=== PATIENT | male | born 1945 | race Caucasian/White ===

== ENCOUNTER 2025-06-14 14:25 | Observation (INO) | payer OTHER, MEDICARE ==
--- NOTE | 2025-06-14 14:55 | ED ---
General Adult HPI - General Chief complaint: Chest Pain Stated complaint: Chest Pain Time Seen by Provider: 06/14/25 14:34 Source: patient, family Mode of arrival: ambulatory Limitations: no limitations - History of Present Illness Initial comments: Dictation was produced using [employer] dictation software. please excuse any grammatical, word or spelling errors. Chief Complaint: 79-year-old male with history of defibrillator presents to the ER for chest pain History of Present Illness: Patient 79-year-old male he lives in [facility] however they are in town visiting family. Patient states for the last several months he has been having chest pain. States that today he felt like he was getting worse. States is substernal now involves radiation tingling to the right upper extremity. No associated nausea or diaphoresis. Patient has no hi story known of coronary artery disease. The ROS documented in this emergency department record has been reviewed and confirmed by me. Those systems with pertinent positive or negative responses have been documented in the HPI. All other systems are other negative and/or noncontributory. - Related Data Allergies Allergy/AdvReac Type Severity Reaction Status Date / Time No Known Allergies Allergy Verified 06/14/25 14:31 Review of Systems ROS Statement: Those systems with pertinent positive or pertinent negative responses have been documented in the HPI. ROS Other: All systems not noted in ROS Statement are negative. Past Medical History Past Medical History: Atrial Fibrillation, Coronary Artery Disease (CAD), GERD/ Reflux Past Surgical History: Orthopedic Surgery, Pacemaker Additional Past Surgical History / Comment(s): eye General Exam - General Exam Comments Initial Comments: PHYSICAL EXAM: General Impression: Alert and oriented x3, not in acute distress HEENT: Normocephalic atraumatic, extra-ocular movements intact, pupils equal and reactive to light bilaterally, mucous membranes moist. Cardiovascular: Heart regular rate and rhythm Chest: Able to complete full sentences, no retractions, no tachypnea Abdomen: abdomen soft, non-tender, non-distended, no organomegaly Musculoskeletal: Pulses present and equal in all extremities, no peripheral edema Motor: no focal deficits noted Neurological: CN II-XII grossly intact, no focal motor or sensory deficits noted Skin: Intact with no visualized rashes Psych: Normal affect and mood Limitations: no limitations Course Vital Signs 06/14/25 06/14/25 14:28 16:27 Temperature 98.1 F Pulse Rate 70 70 Respiratory 20 18 Rate Blood Pressure 136/71 140/89 O2 Sat by Pulse 97 98 Oximetry EKG Findings - EKG Comments: EKG Findings:: My EKG interpretation: Ventricular rate 69, ventricular rhythm. QRS 150, QTc 457. No QTC prolongation, no ST or T-wave changes noted. Overall, this EKG is unremarkable Medical Decision Making - Medical Decision Making Was pt. sent in by a medical professional or institution (, PA, AERONAUTICAL ENGINEERING TECHNOLOGIST, urgent care, hospital, or prison...) When possible be specific @ -No Did you speak to anyone other than the patient for history (EMS, parent, family, police, friend...)? What history was obtained from this source @ -No Did you review nursing and triage notes (agree or disagree)? Why? @ -I reviewed and agree with nursing and triage notes Were old charts reviewed (outside hosp., previous admission, EMS record, old EKG, old radiological studies, urgent care reports/EKG's, prison records)? Report findings @ -No old charts were reviewed Differential Diagnosis (chest pain, altered mental status, abdominal pain women, abdominal pain men, vaginal bleeding, musculoskeletal, weakness, fever, dyspnea, syncope, headache, dizziness, GI bleed, back pain, seizure, CVA, palpatations, mental health)? @ -Differential Chest Pain: Stable Angina, Unstable Angina, STEMI, NSTEMI Aortic Dissection, Pneumothorax, Musculoskeletal, Esophageal Spasm GERD, Cholecystitis, Pancreatitis, Zoster, this is not meant to be an all-inclusive list. EKG interpreted by me (3pts min.). @ -See above X-rays interpreted by me (1pt min.). @ -Chest x-ray shows no acute processes CT interpreted by me (1pt min.). @ -None done U/S interpreted by me (1pt. min.). @ -None done What testing was considered but not performed or refused? (CT, X-rays, U/S, labs)? Why? @ -None What meds were considered but not given or refused? Why? @ -None Was smoking cessation discussed for >3mins.? @ -No Were there social determinants of health that impacted care today? How? (Homelessness, low income, unemployed, alcoholism, drug addiction, transportation, low edu. Level, literacy, decrease access to med. care, group home, r ehab)? @ -No Was there de-escalation of care discussed even if they declined (Discuss DNR or withdrawal of care, Hospice)? DNR status @ -No What co-morbidities impacted this encounter? (DM, HTN, Smoking, COPD, CAD, Cancer, CVA, ARF, Chemo, Hep., AIDS, mental health diagnosis, sleep apnea, morbid obesity)? @ -None Was patient admitted / discharged? Hospital course, mention meds given and route, prescriptions, significant lab abnormalities, going to OR and other pertinent info. @ -71-year-old male presents with chest pain concern for acute coronary syndrome. Vital signs upon arrival are within acceptable limits. EKG shows no signs of ischemia infarction. Laboratory evaluation obtained. Troponin negative. Rest of labs unremarkable. Chest x-ray is nonacute. Patient given aspirin. Disposition options were discussed patient agreeable for observation admission with consultation to cardiology. Did you discuss the management of the patient with other professionals (professionals i.e. , PA, AERONAUTICAL ENGINEERING TECHNOLOGIST, lab, RT, psych nurse, social worker aide, junior sales representative, teacher, environmental technical officer, wrapper caser)? Give summary @ -No Was critical care preformed (if so, how long)? @ -No Undiagnosed new problem with uncertain prognosis? @ -No Drug Therapy requiring intensive monitoring for toxicity (Heparin, Nitro, Insulin, Cardizem)? @ -No Were any procedures done? @ -No Diagnosis/symptom? Acute, or Chronic, or Acute on Chronic? Uncomplicated (without systemic symptoms) or Complicated (systemic symptoms)? @ -Acute coronary syndrome Side effects of treatment? @ -No Exacerbation, Progression, or Severe Exacerbation? @ -No Poses a threat to life or bodily function? How? (Chest pain, USA, VT, pneumonia, PE, COPD, DKA, ARF, appy, cholecystitis, CVA, Diverticulitis, Homicidal, Suicidal, threat to staff... and all critical care pts) @ -yes - Lab Data Result diagrams: 06/14/25 15:01 06/14/25 15:01 Lab Results 06/14/25 06/14/25 06/14/25 Range/Units 15:01 15: 15:01 WBC 5.66 (4.50-10.00) 10*3/uL RBC 3.94 L (4.40-5.60) 10*6/uL Hgb 13.3 (13.0-17.0) g/dL Hct 37.4 L (39.6-50.0) % MCV 94.9 (80.0-97.0) fL MCH 33.8 H (27.0-32.0) pg MCHC 35.6 (32.0-37.0) g/dL Plt Count 269 (140-440) 10*3/uL MPV 9.5 (9.5-12.2) fL Immature Gran % (Auto) 0.2 % Neutrophils % 56.6 % Lymphocytes % 27.6 % Monocytes % 13.1 % Eosinophils % 1.6 % Basophils % 0.9 % Immature Gran # 0.01 (0.00-0.04) 10*3/uL Neutrophils # 3.21 (1.80-7.70) 10*3/uL Lymphocytes # 1.56 (0.90-5.00) 10*3/uL Monocytes # 0.74 (0.20-1.00) 10*3/uL Eosinophils # 0.09 (0.04-0.35) 10*3/uL Basophils # 0.05 (0.00-0.10) 10*3/uL PT 10.8 (10.0-12.5) sec INR 1.0 (<1.2) APTT 24.3 (22.0-30.0) sec Sodium 137 (137-145) mmol/L Potassium 4.2 (3.5-5.1) mmol/L Chloride 103 (98-107) mmol/L Carbon Dioxide 21 L (22-30) mmol/L Anion Gap 13 mmol/L BUN 19 (9-20) mg/dL Creatinine 0.70 (0.66-1.25) mg/dL Est GFR (CKD-EPI)AfAm >90 (>60 ml/min/1.73 sqM) Est GFR (CKD-EPI)NonAf >90 (>60 ml/min/1.73 sqM) Glucose 86 (74-99) mg/dL Calcium 9.6 (8.4-10.2) mg/dL Magnesium 1.9 (1.6-2.3) mg/dL Total Bilirubin 0.4 (0.2-1.3) mg/dL AST 29 (17-59) U/L ALT 20 (4-49) U/L Alkaline Phosphatase 43 (38-126) U/L Troponin I (0.000-0.034) ng/mL Total Protein 6.7 (6.3-8.2) g/dL Albumin 4.1 (3.5-5.0) g/dL 06/14/25 Range/Units 15:01 WBC (4.50-10.00) 10*3/uL RBC (4.40-5.60) 10*6/uL Hgb (13.0-17.0) g/dL Hct (39.6-50.0) % MCV (80.0-97.0) fL MCH (27.0-32.0) pg MCHC (32.0-37.0) g/dL Plt Count (140-440) 10*3/uL MPV (9.5-12.2) fL Immature Gran % (Auto) % Neutrophils % % Lymphocytes % % Monocytes % % Eosinophils % % Basophils % % Immature Gran # (0.00-0.04) 10*3/uL Neutrophils # (1.80-7.70) 10*3/uL Lymphocytes # (0.90-5.00) 10*3/uL Monocytes # (0.20-1.00) 10*3/uL Eosinophils # (0.04-0.35) 10*3/uL Basophils # (0.00-0.10) 10*3/uL PT (10.0-12.5) sec INR (<1.2) APTT (22.0-30.0) sec Sodium (137-145) mmol/L Potassium (3.5-5.1) mmol/L Chloride (98-107) mmol/L Carbon Dioxide (22-30) mmol/L Anion Gap mmol/L BUN (9-20) mg/dL Creatinine (0.66-1.25) mg/dL Est GFR (CKD-EPI)AfAm (>60 ml/min/1.73 sqM) Est GFR (CKD-EPI)NonAf (>60 ml/min/1.73 sqM) Glucose (74-99) mg/dL Calcium (8.4-10.2) mg/dL Magnesium (1.6-2.3) mg/dL Total Bilirubin (0.2-1.3) mg/dL AST (17-59) U/L ALT (4-49) U/L Alkaline Phosphatase (38-126) U/L Troponin I <0.012 (0.000-0.034) ng/mL Total Protein (6.3-8.2) g/dL Albumin (3.5-5.0) g/dL Disposition Clinical Impression: Chest pain Clinical Impression: (Ruled Out): Gastroesophageal reflux disease Disposition: ADMITTED IP TO THIS [facility] Condition: Fair Referrals: Nonstaff,Physician [Primary Care Provider] - 1-2 days Decision Time: 16:28
[2025-06-14 15:10] LABS: Basophils # (A) 0.05 10*3/uL (0.00-0.10); Basophils % (A) 0.9 %; Eosinophils # (A) 0.09 10*3/uL (0.04-0.35); Eosinophils % (A) 1.6 %; HCT 37.4 % (39.6-50.0); HGB 13.3 g/dL (13.0-17.0); Lymphocytes # (A) 1.56 10*3/uL (0.90-5.00); Lymphocytes % (A) 27.6 %; MCH 33.8 pg (27.0-32.0); MCHC 35.6 g/dL (32.0-37.0); MCV 94.9 fL (80.0-97.0); Monocytes # (A) 0.74 10*3/uL (0.20-1.00); Monocytes % (A) 13.1 %; Neutrophils # (A) 3.21 10*3/uL (1.80-7.70); Neutrophils % (A) 56.6 %; Platelet Count 269 10*3/uL (140-440); RBC 3.94 10*6/uL (4.40-5.60); RDW 12.9 % (11.5-14.5); WBC 5.66 10*3/uL (4.50-10.00)
--- NOTE | 2025-06-14 15:18 | XR ---
EXAMINATION TYPE: XR chest 2V DATE OF EXAM: 06/14/2025 3:13 PM COMPARISON: None. CLINICAL INDICATION: Male, 79 years old with history of Chest Pain; [facility] TECHNIQUE: XR chest 2V Frontal and lateral views of the chest. FINDINGS: Lungs/Pleura: There is no evidence of pleural effusion, focal consolidation, or pneumothorax. Pulmonary vascularity: Unremarkable. Heart/mediastinum: Cardiac megaly. Left chest wall cardiac pacemaker device with leads overlying the region of the right atrium and right ventricle. Musculoskeletal: No acute osseous pathology. Other findings: None IMPRESSION: No acute cardiopulmonary disease/process. [facility], , 06/14/2025 3:15 PM
[2025-06-14 15:24] LABS: ALT 20 U/L (4-49); AST 29 U/L (17-59); African American GFR (CKD) >90 (>60 ml/min/1.73 sqM); Albumin 4.1 g/dL (3.5-5.0); Alkaline Phosphatase 43 U/L (38-126); Anion Gap 13 mmol/L; Blood Urea Nitrogen 19 mg/dL (9-20); Calcium 9.6 mg/dL (8.4-10.2); Carbon Dioxide 21 mmol/L (22-30); Chloride 103 mmol/L (98-107); Glucose 86 mg/dL (74-99); INR 1.0 (<1.2); Magnesium 1.9 mg/dL (1.6-2.3); Non-African American GFR(CKD) >90 (>60 ml/min/1.73 sqM); Partial Thromboplastin Time 24.3 sec (22.0-30.0); Potassium 4.2 mmol/L (3.5-5.1); Prothrombin Time 10.8 sec (10.0-12.5); Sodium 137 mmol/L (137-145); Total Protein 6.7 g/dL (6.3-8.2)
[2025-06-14] MEDS: ASPIRIN 81 MG PO STA (16:10)
[2025-06-14] MEDS ORDERED: NITROGLYCERIN SL TABS 0.4 MG TAB SUBLINGUAL PRN (16:27)
[2025-06-14] MEDS: APIXABAN 5 MG TAB PO SCH (21:18)
[2025-06-15] MEDS: PANTOPRAZOLE 40 MG TABLET PO SCH (06:42)
[2025-06-15] MEDS: ASPIRIN 325 MG TAB PO SCH (08:18)
[2025-06-15 09:04] LABS: Cholesterol 171.00 mg/dL (0.00-200.00); HDL Cholesterol 67.20 mg/dL (40.00-60.00); LDL Cholesterol,Calculated 87.5 mg/dL (0.0-131.0); Triglycerides 81.50 mg/dL (0.00-149.00); VLDL Calculation 16.30 mg/dL (5.00-40.00)
--- NOTE | 2025-06-15 11:08 | P.CRDCN ---
History of Present Illness Consult date: 06/15/25 Requesting physician: Camilo Engle Reason for Consult (text): chest pain Chief complaint: dizziness, right arm numbness, chest pressure History of present illness: This is a pleasant 79-year-old gentleman patient who follows with a vice president business development in [place], [place]. He has past medical history of permanent pacemaker implantation done in 2020 for heart rate in the 30s while he was visiting in [place], this is a dual-chamber device, history of atrial fibrillation persistent since 2020, anticoagulated on Eliquis, heart murmur for many years. He denies a history of known CAD asked says he had a stress test a couple years ago that was normal, no diabetes, no hypertension, no hyperlipidemia and he is a non-smoker. He says he last saw his vice president business development about a year and a half ago. He initially presented to an urgent care due to needing medication refills and when speaking with them about his recent symptoms they referred him to the emergency department. Presented to the hospital with complaints of recurrent dizziness typically when he is up and about doing things, right arm numbness at times and chest heaviness. The chest heaviness occurs at times with the dizziness but other times on its own. It occurs with walking but not always but typically resolves with rest. He has had no syncope. He denies any palpitations. Diagnostics -EKG: A-fib, ventricular paced -Chest x-ray: No acute cardiopulmonary disease/process -Laboratory studies: White blood cell count 5.66, hemoglobin 13.3, sodium 137, potassium 4.2, BUN 19, creatinine 0.70, magnesium 1.9, troponins negative x 3. -Home cardiac medications: Eliquis 5 mg p.o. twice daily -Prior stress test: A couple of years ago, normal per patient -Echocardiogram: Unknown -Cardiac catheterization: None Review Of Systems: At the time of my exam: CONSTITUTIONAL: Denies fever or chills. HEENT: Denies blurred vision, vision changes. CARDIOVASCULAR: No chest discomfort. Denies orthopnea. Denies PND. Denies palpitations, dizziness, or syncope. RESPIRATORY: Denies shortness of breath, wheezing, or cough. Denies hemoptysis. GASTROINTESTINAL: Denies abdominal pain. Denies nausea or vomiting. Denies bleeding. HEMATOLOGIC: Denies bleeding disorders. GENITOURINARY: Denies hematuria. SKIN: Denies puritis. Denies rash. PHYSICAL EXAMINATION: This is a 79-year-old gentleman in no apparent distress at the time of my exa mination. VITAL SIGNS: Reviewed. HEENT: Head is atraumatic, normocephalic. Pupils are equal, round. Sclerae anicteric. Conjunctivae are clear. Mucous membranes of the mouth are moist. Neck is supple. There is no elevated jugular venous pressure. No carotid bruit is heard. CHEST EXAMINATION: Clear to auscultation bilaterally. No wheezes rales or rhonchi. Respirations even and nonlabored. HEART EXAMINATION: Heart regular, positive S1 and S2. No S3. No S4. Soft systolic murmur. ABDOMEN: Soft, nontender. Bowel sounds are heard. No organomegaly noted. EXTREMITIES: 2+ peripheral pulses with no evidence of peripheral edema and no calf tenderness noted. NEUROLOGIC EXAMINATION: Patient is awake, alert and oriented x3. Assessment: 1. Chest heaviness, acute coronary event has been ruled out 2. Recurrent dizziness 3. Longstanding persistent atrial fibrillation, anticoagulated on Eliquis 4. Status post permanent pacemaker implantation in 2020 Plan: From cardiology's perspective acute coronary event has been ruled out. Patient is unable to recall the name of his vice president business development but once this is obtained we will request records. Patient will be kept n.p.o. after midnight tonight for L exiscan stress test. Will obtain a 2D echo with Doppler study to assess cardiac structure and function. We will have his pacemaker interrogated. Further recommendations to follow. Thank you kindly for this consultation. Nurse practitioner note has been reviewed, I agree with documented findings and plan of care. Patient was seen and examined. Past Medical History Past Medical History: Atrial Fibrillation, Cancer, GERD/Reflux, Prostate Disorder Additional Past Medical History / Comment(s): skin CA, heart murmur, prostate CA in remission History of Any Multi-Drug Resistant Organisms: None Reported Past Surgical History: Orthopedic Surgery, Pacemaker Additional Past Surgical History / Comment(s): cataract surgery, pacemaker due to bradycardia, left knee surgery, skin CA removal Past Anesthesia/Blood Transfusion Reactions: No Reported Reaction Type of Cardiac Device: Permanent Pacemaker Device Placement Date:: 2020 Past Psychological History: No Psychological Hx Reported Smoking Status: Never smoker Past Alcohol Use History: None Reported Past Drug Use History: None Reported Medications and Allergies Home Medications Medication Instructions Recorded Confirmed Type Apixaban [Eliquis] 5 mg PO BID 06/14/25 06/14/25 History Omeprazole 20 mg PO DAILY 06/14/25 06/14/25 History Allergies Allergy/AdvReac Type Severity Reaction Status Date / Time No Known Allergies Allergy Verified 06/14/25 17:25 Physical Exam Vitals: Vital Signs Temp Pulse Pulse Resp BP BP Pulse Ox 06/15/25 07:18 97.8 F 67 18 120/76 96 06/15/25 00:01 97.6 F 70 18 106/65 95 06/14/25 19:56 97.8 F 70 18 155/82 99 06/14/25 18:07 98.2 F 70 18 142/85 98 06/14/25 16:27 70 18 140/89 98 06/14/25 14:28 98.1 F 70 20 136/71 97 Intake and Output 06/14/25 06/15/25 06/15/25 22:59 06:59 14:59 Other: Voiding Method Toilet # Voids 1 2 Weight 67.132 kg Results 06/14/25 15:01 06/14/25 15:01 Cardiac Enzymes 06/14/25 06/14/25 06/14/25 Range/Units 15:01 15:01 17:54 AST 29 (17-59) U/L Troponin I <0.012 <0.012 (0.000-0.034) ng/mL 06/14/25 Range/Units 21:47 AST (17-59) U/L Troponin I <0.012 (0.000-0.034) ng/mL Coagulation 06/14/25 Range/Units 15:01 PT 10.8 (10.0-12.5) sec APTT 24.3 (22.0-30.0) sec CBC 06/14/25 Range/Units 15:01 WBC 5.66 (4.50-10.00) 10*3/uL RBC 3.94 L (4.40-5.60) 10*6/uL Hgb 13.3 (13.0-17.0) g/dL Hct 37.4 L (39.6-50.0) % Plt Count 269 (140-440) 10*3/uL Comprehensive Metabolic Panel 06/14/25 Range/Units 15:01 Sodium 137 (137-145) mmol/L Potassium 4.2 (3.5-5.1) mmol/L Chloride 103 (98-107) mmol/L Carbon Dioxide 21 L (22-30) mmol/L BUN 19 (9-20) mg/dL Creatinine 0.70 (0.66-1.25) mg/dL Glucose 86 (74-99) mg/dL Calcium 9.6 (8.4-10.2) mg/dL AST 29 (17-59) U/L ALT 20 (4-49) U/L Alkaline Phosphatase 43 (38-126) U/L Total Protein 6.7 (6.3-8.2) g/dL Albumin 4.1 (3.5-5.0) g/dL Current Medications Generic Name Dose Route Start Last Admin Trade Name Freq PRN Reason Stop Dose Admin Apixaban 5 mg 06/14/25 21:00 06/15/25 08:18 Apixaban 5 Mg Tab PO 5 mg BID APRIL Administration Protocol Aspirin 325 mg 06/15/25 09:00 06/15/25 08:18 Aspirin 325 Mg Tab PO 325 mg DAILY APRIL Administration Nitroglycerin 0.4 mg 06/14/25 16:27 Nitroglycerin Sl Tabs 0.4 Mg Tab SUBLINGUAL Q5M PRN Chest Pain Pantoprazole Sodium 40 mg 06/15/25 07:30 06/15/25 06:42 Pantoprazole 40 Mg Tablet PO 40 mg [id number] APRIL Administration Intake and Output 06/14/25 06/15/25 06/15/25 22:59 06:59 14:59 Other: Voiding Method Toilet # Voids 1 2 Weight 67.132 kg 06/14/25 15:01 06/14/25 15:01
[2025-06-15 19:24] VITALS: PULSE 70
[2025-06-15] MEDS: SODIUM CHLORIDE 0.9% 1,000 ML IV ONE (20:25)
--- NOTE | 2025-06-16 02:12 | HP ---
HISTORY AND PHYSICAL HISTORY OF PRESENT ILLNESS: A 79-year-old white male came in for Cardiology because of chest pain has been having on and off for months. His right arm is going numb. He has 2 chest pressure. He has been on Eliquis for atrial fibrillation for many years, pacemaker placed. Stress test that was normal 2 years ago. He is dizzy with chest heaviness and tightness palpitations. EKG, atrial fibrillation, ventricular . Chest x-ray negative. Labs show white count is 5.66, potassium 4.2, creatinine 0.7. Troponin is negative. MEDICATIONS: Include Eliquis 5 mg b.i.d. PHYSICAL EXAMINATION: VITAL SIGNS: Stable, afebrile. CARDIOVASCULAR: S1, S2. LUNGS: Scattered rhonchi and wheeze. HEMATOLOGY: Negative Homans. GI: Soft. NEUROLOGIC: Alert and oriented x3. OPHTHALMOLOGIC: Pupils equal, round, reactive. ASSESSMENT AND PLAN: Chest heaviness, acute coronary has been rule. Current dizziness onset , atrial fibrillation, pacemaker. Please see further orders as well as stress test prior to discharge. Follow up as an outpatient. MMODL / IJN: [id number] /
[2025-06-16] MEDS ORDERED: AMINOPHYLLINE 500 MG/20 ML VIAL IV PRN (06:00)
[2025-06-16] MEDS ORDERED: CAFFEINE CITRATE 60 MG/3 ML VIAL IV PRN (06:00)
[2025-06-16] MEDS ORDERED: REGADENOSON 0.4 MG/5 ML SYRINGE IV PRN (06:00)
[2025-06-16 07:21] VITALS: RESP 16
[2025-06-16] MEDS: ASPIRIN 81 MG PO SCH (08:23)
--- NOTE | 2025-06-16 11:46 | NM ---
EXAMINATION TYPE: NM stress lexiscan cardiolite DATE OF EXAM: 06/16/2025 COMPARISON: None CLINICAL INDICATION: Male, 79 years old with history of chest heaviness; TECHNIQUE: After the intravenous administration of 10.4 mCi Tc 99m Sestamibi - Cardiolite resting SP ECT images acquired 75 minutes post injection. The patient received 0.4mg Lexiscan, 25.7 mCi Tc 99m Sestamibi - Stress images obtained [address] injection FINDINGS: Review of stress and rest SPECT images demonstrates a moderate-sized fixed defect mid anterior wall. No discrete reversibility is seen. Gated analysis shows normal wall motion with an estimated left ve ntricular ejection fraction of 57 %. TID is calculated at 1.06. There is a moderate-sized fixed defect mid anterior wall. No discrete reversibility is seen. IMPRESSION: Fixed defect mid anterior wall could reflect attenuation artifact versus an area of old infarct. No discrete reversibility seen. [facility], Workstation: JOSÉ ANTONIOVANESSA, 06/16/2025 11:43 AM
--- NOTE | 2025-06-16 12:11 | CA ---
Lexiscan Nuclear Stress Test Report Name: Jorge Riddle Exam Date: 06/16/2025 09:32 Exam Location: [place] Stress Ht (in): 66 Wt (lb): 148 BSA: 1.76 Ordering Phys: Sofiya Vanegas NPC Referring Phys: PAM Technologist: OSMAN Age: 79 Gender: M : 1945 Procedure CPT: Indications: Reflex order-Stress test ICD-10 Codes: Patient History: CP, LUDIVINA, NUMBNESS, FAMILY HX, COPD. 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 Normal hemodynamic and clinical response to Lexiscan infusion. 2. Stress ECG is not diagnostic because of paced rhythm. Please refer to the nuclear imaging portion of this stress test for complete interpretation of the study. Dr Twan Lance (Electronically Signed) Final Date: 16 June 2025 12:10
--- NOTE | 2025-06-16 12:43 | CA ---
Transthoracic Echo Report Name: Jorge Riddle Age: 79 Gender: M : 1945 Exam Date: 06/16/2025 11:04 Exam Location: [facility] Ht (in): 66 Wt (lb): 148 Ordering Physician: Sofiya Vanegas Attending/Referring Phys: [id number], Guilherme Eyeglass Maker Sofi Wynn RDCS Procedure CPT: Indications: Chest heaviness, Unstable angina Cardiac Hx: Technical Quality: Good Contrast 1: Total Dose (mL): Contrast 2: Total Dose (mL): MEASUREMENTS (Male / Female) Normal Values 2D ECHO LV Diastolic Diameter PLAX 4.0 cm 4.2 - 5.9 / 3.9 - 5.3 cm LV Systolic Diameter PLAX 2.6 cm IVS Diastolic Thickness 1.1 cm 0.6 - 1.0 / 0.6 - 0.9 cm LVPW Diastolic Thickness 1.2 cm 0.6 - 1.0 / 0.6 - 0.9 cm LV Relative Wall Thickness 0.6 RV Internal Dim ED PLAX 3.9 cm LVOT Diameter 2.0 cm LA Systolic Diameter LX 3.8 cm 3.0 - 4.0 / 2.7 - 3.8 cm LV Diastolic Volume MOD BP 64.8 cm??? 67 - 155 / 56 - 104 cm??? LV Systolic Volume MOD BP 25.5 cm??? 22 - 58 / 19 - 49 cm??? LV Ejection Fraction MOD BP 60.6 % >= 55 % LV Cardiac Index MOD BP 1547.2 cm???/min???m??? LV Diastolic Volume MOD 4C 47.5 cm??? LV Systolic Volume MOD 4C 22.0 cm??? LV Ejection Fraction MOD 4C 53.6 % LV Cardiac Index MOD 4C 1004.6 cm???/min???m??? LV Diastolic Length 4C 6.6 cm LV Systolic Length 4C 5.9 cm LV Diastolic Volume MOD 2C 81.5 cm??? LV Systolic Volume MOD 2C 30.0 cm??? LV Ejection Fraction MOD 2C 63.3 % LV Cardiac Index MOD 2C 2034.0 cm???/min???m??? LV Diastolic Length 2C 7.2 cm LV Systolic Length 2C 5.9 cm LA Volume 60.4 cm??? 18 - 58 / 22 - 52 cm??? LA Volume Index 34.0 cm???/m??? 16 - 28 cm???/m??? DOPPLER AI Peak Velocity 312.8 cm/s AI Peak Gradient 39.1 mmHg AI Pressure Half Time 529.9 ms TR Peak Velocity 250.0 cm/s TR Peak Gradient 25.0 mmHg Right Atrial Pressure 5.0 mmHg Pulmonary Artery Systolic Pressu 30.0 mmHg Right Ventricular Systolic Press 30.0 mmHg FINDINGS Left Ventricle Left ventricular ejection fraction is estimated at 55-60%. Mild concentric left ventricular hypertrophy. No obvious regional wall motion abnormalities. Left ventricular cavity size normal. Right Ventricle right ventricular dilatation. Right ventricular systolic pressure within normal limits. Right Atrium Moderate right atrial dilatation. Left Atrium Mildly increased left atrial volume. Mildly increased left atrial area. Mitral Valve Mitral valve thickened. No mitral stenosis. Mild mitral regurgitation. Aortic Valve Trileaflet aortic valve. No aortic stenosis. Mild aortic regurgitation. Tricuspid Valve Structurally normal tricuspid valve. No tricuspid stenosis. Mild tricuspid regurgitation. Pulmonic Valve Structurally normal pulmonic valve. No pulmonic stenosis. Trace pulmonic regurgitation. Pericardium No pericardial effusion. Aorta Normal size aortic root and proximal ascending aorta. CONCLUSIONS LVEF 55% Mild concentric LVH. No obvious regional wall motion abnormality Moderate RV dilatation with moderate RA dilatation. Normal RVSP Mild mitral regurgitation, mild aortic regurgitation, mild tricuspid regurgitation Previewed by: Dr Twan Lance (Electronically Signed) Final Date: 16 June 2025 12:42
--- NOTE | 2025-06-16 12:52 | P.PN ---
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 He has past medical history of permanent pacemaker implantation done in 2020 for heart rate in the 30s while he was visiting in [place], this is a dual-chamber device, history of atrial fibrillation persistent since 2020, anticoagulated on Eliquis, heart murmur for many years. He denies a history of known CAD asked says he had a stress test a couple years ago that was normal, no diabetes, no hypertension, no hyperlipidemia and he is a non-smoker. He says he last saw his high school combination teacher about a year and a half ago. He initially presented to an urgent care due to needing medication refills and when speaking with them about his recent symptoms they referred him to the emergency department. Presented to the hospital with complaints of recurrent dizziness typically when he is up and about doing things, right arm numbness at times and chest heaviness. The chest heaviness occurs at times with the dizziness but other times on its own. It occurs with walking but not always but typically resolves with rest. He has had no syncope. He denies any palpitations. Diagnostics -EKG: A-fib, ventricular paced -Chest x-ray: No acute cardiopulmonary disease/process -Laboratory studies: White blood cell count 5.66, hemoglobin 13.3, sodium 137, potassium 4.2, BUN 19, creatinine 0.70, magnesium 1.9, troponins negative x 3. -Home cardiac medications: Eliquis 5 mg p.o. twice daily -Prior stress test: A couple of years ago, normal per patient -Echocardiogram: Unknown -Cardiac catheterization: None Progress note 06/16/2025 Seen and examined at bedside this a.m. Patient underwent echocardiogram and stress test with Lexiscan today. They were nonrevealing other than echocardiogram showing moderate RV dilatation with moderate RA dilatation which could be related to RV paced rhythm. PHYSICAL EXAMINATION: This is a 79-year-old gentleman in no apparent distress at the time of my examination. VITAL SIGNS: Reviewed. HEENT: Head is atraumatic, normocephalic. Pupils are equal, round. Sclerae anicteric. Conjunctivae are clear. Mucous membranes of the mouth are moist. Neck is supple. There is no elevated jugular venous pressure. No carotid bruit is heard. CHEST EXAMINATION: Clear to auscultation bilaterally. No wheezes rales or rhonchi. Respirations even and nonlabored. HEART EXAMINATION: Heart regular, positive S1 and S2. No S3. No S4. Soft systolic murmur. ABDOMEN: Soft, nontender. Bowel sounds are heard. No organomegaly noted. EXTREMITIES: 2+ peripheral pulses with no evidence of peripheral edema and no calf tenderness noted. NEUROLOGIC EXAMINATION: Patient is awake, alert and oriented x3. Assessment: 1. Chest heaviness, acute coronary event has been ruled out 2. Recurrent dizziness 3. Longstanding persistent atrial fibrillation, anticoagulated on Eliquis 4. Status post permanent pacemaker implantation in 2020 5. 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 Plan: From cardiology's perspective acute coronary event has been ruled out. Stress test does not show any evidence of ischemia. Echocardiogram shows preserved LVEF with no major valvular RA and RV dilatation. patient is otherwise cleared from cardiovascular standpoint. Recommend outpatient follow-up with primary high school combination teacher. Continue Eliquis at the time of discharge. Objective - Vital Signs Vital signs: Vital Signs Temp 98.1 F 06/16/25 07:00 Pulse 70 06/16/25 07:00 Resp 16 06/16/25 07:00 BP 116/75 06/16/25 07:00 Pulse Ox 98 06/16/25 07:00 FiO2 21 06/15/25 12:09 Intake & Output 06/15/25 06/16/25 06/16/25 18:59 06:59 18:59 Other: Voiding Method Toilet Toilet Toilet Urinal # Voids 5 2 # Bowel Movements 0 - Labs CBC & Chem 7: 06/14/25 15:01 06/14/25 15:01
[2025-06-16 14:07] VITALS: BP 135/73; TEMP 98
== END 2025-06-16 17:33 | disposition home or self-care (01) ==
LOC: EC 14:25 → 6NMEDSUR 16:27
PROVIDERS: ADMIT Family Medicine; ATTEND Family Medicine
DX: R07.89 Other chest pain (principal); R42 Dizziness and giddiness; I25.10 Atherosclerotic heart disease of native coronary artery without angina pectoris; K21.9 Gastro-esophageal reflux disease without esophagitis; I48.11 Longstanding persistent atrial fibrillation; Z85.46 Personal history of malignant neoplasm of prostate; Z85.828 Personal history of other malignant neoplasm of skin; Z95.810 Presence of automatic (implantable) cardiac defibrillator; Z79.01 Long term (current) use of anticoagulants; Z79.899 Other long term (current) drug therapy
CPT/HCPCS: 99285; 36415; 94760; 93005; 93017; 93306; 85379; 80061; 80053; 83735; 84484; 85025; 85610; 85730; 71046; 78452; G0378 ×3; A9500